=== PATIENT | male | born 1970 | race Caucasian/White ===

== ENCOUNTER → 2017-06-14 | Outpatient (CLI) | payer BC ==
--- NOTE | 2017-06-14 10:09 | US ---
EXAMINATION TYPE: US venous doppler duplex UE LT DATE OF EXAM: 06/14/2017 COMPARISON: NONE CLINICAL HISTORY: R60.0 Edema. Left lower arm pain and swelling SIDE PERFORMED: Left Left Arm: Appears negative for DVT Grayscale, color doppler, spectral doppler imaging performed of the superficial and deep veins of the left upper extremity. There is normal flow, compressibility and vascular waveforms. IMPRESSION: No ultrasound evidence for acute deep or superficial vein thrombus in the left upper extr emity.
== END | disposition home or self-care (01) ==
LOC: RADUSWWP 09:17
PROVIDERS: ATTEND Family Medicine
DX: R60.0 Localized edema (principal)

== ENCOUNTER 2018-12-03 00:47 | Emergency (ER) | payer BC ==
[2018-12-03] MEDS ORDERED: DIPH,PERTUS(ACELL)TETVAC-LF 0.5 ML VIAL IM ONE (01:04)
--- NOTE | 2018-12-03 01:26 | ED ---
General Adult HPI - General Chief complaint: Alcohol Stated complaint: Fall/ETOH Time Seen by Provider: 12/03/18 00:49 Source: EMS Mode of arrival: EMS Limitations: no limitations - History of Present Illness Initial comments: 47-year-old male patient presents to the emergency department today for evaluation after experiencing a fall. Patient admits to being intoxicated and is somewhat difficult to obtain a history from. Patient states he was standing at ground-level before the fall. States he did trip. Patient presents with abrasion to the right forehead, and right knee. Denies any headache. He is unsure if he lost consciousness. Does appear that he was incontinent of urine. He denies any neck or back pain. He is unsure when his last tetanus vaccine was given. Denies any nausea or vomiting since the incident. He is unable to quantify how much he drank this evening. Patient denies any chest pain, shortness of breath, dizziness, weakness, or abdominal pain. - Related Data Home Medications Medication Instructions Recorded Confirmed traMADol HCl [Ultram] 50 - 100 mg PO Q8HR PRN 11/30/15 11/30/15 Previous Rx's Medication Instructions Recorded Orphenadrine [Norflex] 100 mg PO Q12H #20 tablet.er 11/30/15 Allergies Allergy/AdvReac Type Severity Reaction Status Date / Time No Known Allergies Allergy Verified 12/03/18 00:51 Review of Systems ROS Statement: Those systems with pertinent positive or pertinent negative responses have been documented in the HPI. ROS Other: All systems not noted in ROS Statement are negative. Past Medical History Past Medical History: No Reported History History of Any Multi-Drug Resistant Organisms: None Reported Additional Past Surgical History / Comment(s): facial plastic surgery Past Psychological History: Anxiety Smoking Status: Current every day smoker Past Alcohol Use History: Occasional Past Drug Use History: None Reported General Exam Limitations: no limitations General appearance: alert, in no apparent distress, appears intoxicated, other (Physical well-developed, well-nourished adult male patient in no acute distress. Vital signs upon presentation are temperature 98.6F, pulse 94, respirations 18, blood pressure 127/94, pulse ox 95% on room air.) Head exam: Present: other (Abrasion noted to the right forehead) Eye exam: Present: normal appearance, PERRL, EOMI. Absent: scleral icterus, conjunctival injection, nystagmus, periorbital swelling, periorbital tenderness ENT exam: Present: normal exam, normal oropharynx, mucous membranes moist, TM's normal bilaterally Neck exam: Present: normal inspection, full ROM, other (Nontender, no step-off, no deformity to firm midline palpation of the posterior cervical spine. Full range of motion without pain or limitation.). Absent: tenderness, meningismus, lymphadenopathy Respiratory exam: Present: normal lung sounds bilaterally. Absent: respiratory distress, wheezes, rales, rhonchi, stridor Cardiovascular Exam: Present: regular rate, normal rhythm, normal heart sounds. Absent: systolic murmur, diastolic murmur, rubs, gallop, clicks GI/Abdominal exam: Present: soft, normal bowel sounds. Absent: distended, ten derness, guarding, rebound, rigid Back exam: Present: normal inspection, other (Nontender, no step-off, no deformity to firm midline palpation of the thoracic and lumbar vertebrae. Full range of motion without pain or limitation.). Absent: vertebral tenderness Neurological exam: Present: alert, oriented X3, CN II-XII intact Psychiatric exam: Present: normal affect, normal mood Skin exam: Present: warm, dry, intact, normal color. Absent: rash Course Vital Signs 12/03/18 12/03/18 00:48 01:01 Temperature 98.6 F Pulse Rate 94 91 Respiratory 18 20 Rate Blood Pressure 127/94 115/91 O2 Sat by Pulse 95 98 Oximetry Procedures - Laceration Laceration #1 Consent Obtained: verbal consent Indication: laceration Site: face (Right forehead) Size (cm): 3 Description: flap Depth: simple, single layer Pre-repair: irrigated extensively Type of Sutures: other (Exofin skin adhesive) Patient Tolerated Procedure: well, no complications Medical Decision Making - Medical Decision Making 47-year-old male patient presented to the emergency department today for evaluation after experiencing a fall. Patient was intoxicated. Physical examination revealed abrasions to the right knee. There is abrasion with laceration to the right forehead. There is no periorbital tenderness. Eyes are intact with no evidence of injury. Patient was neurologically intact and was alert, oriented 3 despite being intoxicated. Neurologically intact with no focal deficits. Tetanus was updated. Did recommend sutures to the forehead, patient refused sutures, for his and staff safety did perform skin glue closure for the laceration rather than sutures. CT brain C-spine was obtained and showed no acute abnormalities. X-ray of the right knee showed no acute fractures however there was some ossific densities in the knee. Patient denies pain to the area. He is ambulating without difficulty. There is no swelling. He'll be discharged at this time to follow-up with his primary care physician for recheck in 1-2 days. His mother will be taking responsibility for him. Return parameters discussed in detail. He verbalizes understanding and agrees this plan. - Radiology Data Radiology results: report reviewed, image reviewed CT head and neck without contrast was obtained. Report reviewed in its entirety. Impression by Dr. Lombardi shows unremarkable CT of the brain. No evidence for fracture or malalignment of the cervical spine. 3 views of the right knee are obtained. Report reviewed in its entirety. Impression by Dr. Lombardi shows no evidence for fracture or malalignment. They calcific densities in the joint space with possibility of loose bodies. Correlate clinically. Disposition Clinical Impression: Alcohol intoxication, Abrasion of right knee, Forehead laceration Disposition: HOME SELF-CARE Condition: Good Instructions (If sedation given, give patient instructions): Laceration (ED), Alcohol Intoxication (ED), Abrasion (ED), Skin Adhesive Care (ED) Additional Instructions: Keep wounds clean and dry. Cleanse right knee wounds twice daily with warm water and antibacterial soap. Leave skin glue in place, do not pick or pull at this. Do not scrub. Do not apply ointments. Follow-up through primary care physician for recheck in 1-2 days. Return to the emergency department immediately for any new, worsening, or concerning symptoms. Is patient prescribed a controlled substance at d/c from ED?: No Referrals: None,Stated [Primary Care Provider] - 1-2 days Time of Disposition: 02:42
--- NOTE | 2018-12-03 01:56 | CT ---
EXAM: CT Head Without Intravenous Contrast CLINICAL HISTORY: Reason: Pain TECHNIQUE: Axial computed tomography images of the head/brain without intravenous contrast. CTDI is 45.2 mGy and DLP is 1156 mGy-cm. This CT exam was performed using one or more of the following dose reduction techniques: automated exposure control, adjustment of the mA and/or kV according to patient size, and/or use of iterative reconstruction technique. COMPARISON: No relevant prior studies available. FINDINGS: Brain: Unremarkable. No hemorrhage. No significant white matter disease. No edema. Ventricles: Unremarkable. No ventriculomegaly. Bones/joints: Unremarkable. No acute fracture. Soft tissues: Unremarkable. Sinuses: Mucous retention cyst noted in the maxillary sinus on the left. Mastoid air cells: Unremarkable as visualized. No mastoid effusion. IMPRESSION: Unremarkable CT of the brain EXAM: CT Cervical Spine Without Intravenous Contrast CLINICAL HISTORY: : Pain TECHNIQUE: Axial computed tomography images of the cervical spine without intravenous contrast. CTDI is 10.8 mGy and DLP is 353.4 mGy-cm. This CT exam was performed using one or more of the following dose reduction techniques: automated exposure control, adjustment of the mA and/or kV according to patient size, and/or use of iterative reconstruction technique. Coronal and sagittal reformatted images were created and reviewed. COMPARISON: No relevant prior studies available. FINDINGS: Vertebrae: Unremarkable. No acute fracture. Discs/spinal canal/neural foramina: No acute findings. No spinal canal stenosis. Soft tissues: Unremarkable. IMPRESSION: No evidence for fracture or malalignment of the cervical spine.
--- NOTE | 2018-12-03 01:57 | XR ---
EXAM: XR Right Knee, 3 views CLINICAL HISTORY: : Pain TECHNIQUE: Three views of the right knee. COMPARISON: No relevant prior studies available. FINDINGS: Bones/joints: No acute fracture. No dislocation. Vague calcific densities noted in the joint space possibility of a loose body cannot be excluded. Clinical correlation is required. No evidence for joint effusion Soft tissues: Unremarkable. IMPRESSION: No evidence for fracture or malalignment. Vague ossific densities in the joint space raises the possibility of loose bodies. Clinical correlation is required
[2018-12-03] MEDS ORDERED: TOPICAL SKIN ADHESIVE 1 EACH AMP TOPICAL ONE (02:32)
[2018-12-03 02:45] VITALS: BP 124/98; PULSE 67; RESP 18; TEMP 98
== END 2018-12-03 02:57 | disposition home or self-care (01) ==
LOC: EC 00:47
DX: S01.81XA Laceration without foreign body of other part of head, initial encounter (principal); S80.211A Abrasion, right knee, initial encounter; F10.129 Alcohol abuse with intoxication, unspecified; R93.7 Abnormal findings on diagnostic imaging of other parts of musculoskeletal system; F17.200 Nicotine dependence, unspecified, uncomplicated; Z23 Encounter for immunization; Z98.890 Other specified postprocedural states; Z53.29 Procedure and treatment not carried out because of patient's decision for other reasons; W01.0XXA Fall on same level from slipping, tripping and stumbling without subsequent striking against object, initial encounter
CPT/HCPCS: 12013; 70450; 72125; 90471; 90715; 99284

== ENCOUNTER 2020-03-12 08:25 | Day surgery (SDC) | payer BC ==
[2020-03-10 15:49] VITALS: BMI 22.3
--- NOTE | 2020-03-12 08:05 | P.GSHP ---
History of Present Illness H&P Date: 03/12/20 CHIEF COMPLAINT: Colon screen HISTORY OF PRESENT ILLNESS: The patient is a 49-year-old male who presents for colon screen. Lower endoscopy was offered for further evaluation and management. PAST MEDICAL HISTORY: Please see list. PAST SURGICAL HISTORY: Please see list. MEDICATIONS: Please see list. ALLERGIES: Please see list. SOCIAL HISTORY: No illicit drug use FAMILY HISTORY: No reports of Crohn disease or ulcerative colitis. REVIEW OF ORGAN SYSTEMS: CONSTITUTIONAL: No reports of fevers or chills. PHYSICAL EXAM: VITAL SIGNS: Stable GENERAL: Well-developed pleasant in no acute distress. HEENT: No scleral icterus. Extraocular movements grossly intact. Moist buccal mucosa. NECK: Supple without lymphadenopathy. CHEST: Unlabored respirations. Equal bilateral excursions. CARDIOVASCULAR: Regular rate and rhythm. Distal 2+ pulses. ABDOMEN: Soft, nontender, nondistended. MUSCULOSKELETAL: No clubbing, cyanosis, or edema. ASSESSMENT: 1. Colon screen. PLAN: 1. Recommend proceeding with a lower endoscopy Past Medical History Past Medical History: No Reported History History of Any Multi-Drug Resistant Organisms: None Reported Past Surgical History: Tonsillectomy Additional Past Surgical History / Comment(s): facial surgery (severed eye brow muscle -he thinks it was a local anesthetic, tonsills as a child Past Anesthesia/Blood Transfusion Reactions: No Reported Reaction Past Psychological History: No Psychological Hx Reported Smoking Status: Current every day smoker Past Alcohol Use History: Occasional Additional Past Alcohol Use History / Comment(s): smokes 1 ppd, smoking off and on since 12 years old Past Drug Use History: None Reported - Past Family History Mother Family Medical History: No Reported History Medications and Allergies Home Medications Medication Instructions Recorded Confirmed Type Multivitamin [Multivitamins Adult 1 each PO DAILY 03/10/20 03/10/20 History Gummies] Allergies Allergy/AdvReac Type Severity Reaction Status Date / Time No Known Allergies Allergy Verified 03/10/20 15:30
[~2020-03-12 08:25] MED LIST: LACTATED RINGERS 1,000 ML IV SCH; MIDAZOLAM 2 MG/2 ML VIAL IV PRN; ONDANSETRON 4 MG/2 ML VIAL IVP PRN; fentaNYL (PF) 50 MCG/ML 2 ML AMP IV PRN
[2020-03-12 08:38] VITALS: RESP 16; TEMP 97.4
[2020-03-12] MEDS ORDERED: LIDOCAINE 1% (10MG/ML) FOR IV START INTRADERMA ONE (08:54)
[2020-03-12] MEDS ORDERED: MIDAZOLAM 2 MG/2 ML VIAL ONE (09:01)
[2020-03-12] MEDS ORDERED: PROPOFOL 10 MG/ML 20 ML VIAL IV ONE (09:01)
--- NOTE | 2020-03-12 09:31 | P.PCN ---
Date of Procedure: 03/12/20 Description of Procedure: PREOPERATIVE DIAGNOSIS: Colonoscopy screening POSTOPERATIVE DIAGNOSIS: Tubular adenoma descending colon Sigmoid diverticulosis OPERATION: Colonoscopy to the ileocecal valve and appendiceal orifice, cecum Colonoscopy with hot snare polypectomy SURGEON: Catherine Morales MD. ANESTHESIA: MAC. INDICATIONS: The patient is an 49-year-old male who presents for his first colonoscopy screening. Benefits and risks were described and informed consent was obtained. DESCRIPTION OF PROCEDURE: The patient had undergone Suprep. He had been brought into the operating room and laid in the left lateral decubitus position. After adequate intravenous sedation, the rectum was examined with 2% lidocaine jelly. The prostate was unremarkable. No external hemorrhoids were encountered. The rectal tone was within normal limits. No lesions were palpated in the rectal vault. An Olympus colonoscope was advanced until the cecum, ileocecal valve and appendiceal orifice were clearly viewed. The prep was excellent. Sigmoid diverticulosis was encountered. Colonic polyp was removed with snare polypectomy. No evidence of focal colitis was found. Retroflexion of the scope demonstrated grade 1 internal hemorrhoids without active bleeding or inflammation. The colon was desufflated. The patient had tolerated the procedure well. Withdrawal time was over 6 minutes. FINDINGS: Aronchick preparation quality scale 1 (1-5) No internal hemorrhoids No external hemorrhoid No arteriovenous malformations. Sigmoid diverticulosis Removal of 1 polyp: - Snare polypectomy 33 cm from the anal verge, 5 mm tubulovillous adenoma polyp, descending colon No focal colitis. RECOMMENDATIONS: repeat colonoscopy in 2024 Plan - Discharge Summary New Discharge Prescriptions: Continue Multivitamin [Multivitamins Adult Gummies] 1 each PO DAILY Discharge Medication List Multivitamin [Multivitamins Adult Gummies] 1 each PO DAILY 03/10/20 [History] Follow up Appointment(s)/Referral(s): Catherine Morales MD [STAFF PHYSICIAN] - As Needed Patient Instructions/Handouts: Diverticulosis (DC), Colorectal Polyps (DC), Diverticulosis Diet (GEN), Colonoscopy (DC) Activity/Diet/Wound Care/Special Instructions: Repeat colonoscopy years, 2024 Discharge Disposition: HOME SELF-CARE
[2020-03-12 09:52] VITALS: BP 129/77; PULSE 66
== END 2020-03-12 10:40 | disposition home or self-care (01) ==
LOC: ORWHC2ENDO 08:25
PROVIDERS: ATTEND Surgery Plastic and Reconstructive Surgery
DX: Z12.11 Encounter for screening for malignant neoplasm of colon (principal); D12.4 Benign neoplasm of descending colon; K57.30 Diverticulosis of large intestine without perforation or abscess without bleeding; F17.210 Nicotine dependence, cigarettes, uncomplicated; Z98.890 Other specified postprocedural states
CPT/HCPCS: 88305; 45385; J2250; J2704

== ENCOUNTER → 2020-03-28 | Outpatient (CLI) | payer BC | END | disposition home or self-care (01) | LOC: LABWHC1 09:56 | PROVIDERS: ATTEND Nurse Practitioner | DX: Z20.828 Contact with and (suspected) exposure to other viral communicable diseases (principal) | CPT/HCPCS: U0003; C9803 ==